=== PATIENT | female | born 1955 | race Caucasian/White ===

== ENCOUNTER 2018-01-16 09:28 | Day surgery (SDC) | payer OTHER ==
[~2018-01-16] VITALS: Ht 157.5 cm; Wt 64.9 kg
[~2018-01-16 09:28] MED LIST: LIPITOR40 MG PO; PRINZIDE 10-121 EACH PO; TUMS500 MG PO
[2018-01-16 10:11] VITALS: BP 149/84
[2018-01-16 14:20] VITALS: BP 157/89
[2018-01-16 15:15] VITALS: BP 158/92
== END 2018-01-16 15:20 | disposition home or self-care (01) ==
LOC: SDC 09:28
PROVIDERS: Obstetrics & Gynecology Gynecologic Oncology
PROC: 0UBM0ZZ Excision of Vulva, Open Approach (ICD-10-PCS; principal; 2018-01-16)
DX: D07.1 Carcinoma in situ of vulva (principal); E11.9 Type 2 diabetes mellitus without complications; I10 Essential (primary) hypertension; I49.3 Ventricular premature depolarization; Z88.0 Allergy status to penicillin; Z88.2 Allergy status to sulfonamides; Z88.1 Allergy status to other antibiotic agents; Z87.891 Personal history of nicotine dependence; Z80.1 Family history of malignant neoplasm of trachea, bronchus and lung; Z80.0 Family history of malignant neoplasm of digestive organs; Z80.49 Family history of malignant neoplasm of other genital organs
CPT/HCPCS: 82948; 86850; 86900; 86901; 88305; 88342 TC; J1100; J1580; J1885; J2250; J2405; J3010; J7050; J7643; S0020; S0030